=== PATIENT | female | born 1945 | race Caucasian/White ===

== ENCOUNTER 2017-04-26 09:00 | Inpatient (IN) | payer MEDICARE, OTHER ==
--- NOTE | 2017-06-15 15:59 | HP ---
HISTORY AND PHYSICAL: DATE OF ADMISSION/SURGERY: 06/21/17 SURGEON: Sera Saeed MD * (DICTATED BY CELINE PEREZ) PROCEDURE: Right total knee arthroplasty. CHIEF COMPLAINT: Right knee pain. HISTORY OF PRESENT ILLNESS: Ms. Larose is a 72-year-old female with complaints of right knee pain secondary to end-stage osteoarthritis. She has failed conservative management and elected to proceed with a right total knee arthroplasty which is scheduled for 06/21/[address] Saeed. PAST MEDICAL HISTORY: 1. Sleep apnea. 2. COPD. 3. Afib. PAST SURGICAL HISTORY: 1. Tonsillectomy. 2. Left total knee arthroplasty. CURRENT MEDICATIONS: 1. Vitamin B12. 2. ProAir HFA. 3. Eliquis 5 mg twice a day. 4. Metoprolol 25 mg once a day. 5. CPAP. 6. Spiriva inhaler. ALLERGIES: None. FAMILY HISTORY: Coronary artery disease, Alzheimer's and Parkinson's. SOCIAL HISTORY: A 72-year-old female lives with her . Does not smoke or use drugs. Uses occasional alcohol. REVIEW OF SYSTEMS: A complete 14-point review of systems was reviewed with the patient. It is positive for COPD and shortness of breath. PHYSICAL EXAMINATION GENERAL: She is well developed, well nourished, in no acute distress. VITAL SIGNS: She stands 5 feet 5 inches tall, weighs 215 pounds. Blood pressure 131/82 and her heart rate 74. HEENT: Normocephalic, atraumatic. NECK: Supple. No palpable lymph nodes. PULMONARY: The lungs are clear to auscultation bilaterally. CARDIAC: Regular rate and rhythm. Strong S1 and S2. ABDOMEN: Soft, nontender, and nondistended. MUSCULOSKELETAL: Right lower extremity, the skin is intact. There is no open wounds or abrasions. Just some tenderness over the medial and lateral joint line. There is a moderate joint effusion. Range of motion is 10 to 120 degrees with patellofemoral crepitus, 2+ dorsalis pedis pulses. She has intact sensation. Her lower extremity muscle group strengths are intact at 5/5. NEUROLOGIC: She is alert and oriented x3. Cranial nerves II through XII are intact. ASSESSMENT AND PLAN: Ms. Larose is a 72-year-old female with complaints of right knee pain secondary to end-stage osteoarthritis. She has failed conservative management and has elected to proceed with a right total knee arthroscopy, which is scheduled for 06/21/[address] Saeed discussed the risks and benefits of the surgery at today's visit and all of her questions were answered. She was instructed to stop her Eliquis 5 days prior to the surgery. Postoperatively, she will be placed on Lovenox in the hospital for DVT prophylaxis, and when she is released to go home, she will be placed back on her home dose Eliquis. She will follow up with Dr. Saeed 2 weeks after the surgery. CELINE PEREZ [id number]/[facility] #: [id number] MTDD
[2017-06-20] MEDS ORDERED: Buffered Lidocaine 0.9% SYRIN* 5 ML/SYR SYRINGE INTRADERM ONE (11:42)
[2017-06-21] MEDS ORDERED: Famotidine IV* 10 MG/ML 2 ML (20 mg) IV ONE (06:00)
[2017-06-21] MEDS ORDERED: Acetaminophen IV 1GM/100ML * 1,000 MG/100 ML VIAL IVPB ONE (06:00)
[2017-06-21] MEDS ORDERED: Gabapentin CAP(*) 300 MG PO ONE (06:00)
[2017-06-21] MEDS ORDERED: Ketorolac INJ* 30 MG/ML 1 ML VIAL IV ONE (06:00)
[2017-06-21] MEDS ORDERED: Metoclopramide TAB* 10 MG PO ONE (06:00)
[2017-06-21] MEDS ORDERED: Levalbuterol 0.63MG/3ML NEB* UNIT OF USE INH ONE ×2 (06:00→08:15)
[2017-06-21] MEDS ORDERED: Famotidine IV* 10 MG/ML 2 ML (20 mg) ONE (08:09)
[2017-06-21] MEDS ORDERED: Gabapentin CAP(*) 300 MG ONE (08:09)
[2017-06-21] MEDS ORDERED: Ketorolac INJ* 30 MG/ML 1 ML VIAL ONE (08:09)
[2017-06-21] MEDS ORDERED: Metoclopramide TAB* 10 MG ONE (08:09)
[2017-06-21] MEDS ORDERED: ceFAZolin 2 GM (*##) 2 GM/100 ML BAG USE CEFA2SOL IVPB ONE (08:10)
[2017-06-21] MEDS ORDERED: Acetaminophen IV 1GM/100ML * 100 ML ONE (08:15)
[2017-06-21] MEDS ORDERED: Metoprolol Tartrate TAB* 25 MG ONE (10:24)
[2017-06-21] MEDS ORDERED: Lidocaine 2% PF * 5 ML VIAL ONE (10:36)
[2017-06-21] MEDS ORDERED: Ondansetron INJ* 2 MG/ML VIAL ONE (10:36)
[2017-06-21] MEDS ORDERED: Dexamethasone IV* 4 MG/ML 1 ML (4 MG) ONE (10:36)
[2017-06-21] MEDS ORDERED: Propofol* 10 MG/ML 20 ML BTL IV PUSH ONE (10:36)
[2017-06-21] MEDS ORDERED: Midazolam* 1 MG/ML 10 ML VIAL (10 MG) ONE (10:37)
[2017-06-21] MEDS ORDERED: fentaNYL* 50 MCG/ML 5 ML VIAL (250 MCG VIAL) ONE (10:37)
[2017-06-21] MEDS ORDERED: ROPIVACAINE 5 MG/ML 30 ML BTL (0.5%) ONE (10:39)
[2017-06-21] MEDS ORDERED: Bupivacaine 0.5% SDV PF* 10-30ML VIAL ONE (13:12)
[2017-06-21] MEDS ORDERED: Phenylephrine INJ* 10 MG/ML 1 ML VIAL (10 MG) ONE (13:13)
[2017-06-21] MEDS ORDERED: EPHEDrine (Pressors)* 50 MG/ML VIAL ONE (13:13)
[2017-06-21] MEDS ORDERED: Atropine 1MG/ML INJ* 1 ML VIAL ONE (13:52)
[2017-06-21] MEDS ORDERED: Levalbuterol 0.63MG/3ML NEB* UNIT OF USE INH PRN (14:47)
[2017-06-21] MEDS ORDERED: fentaNYL* 50 MCG/ML 2 ML VIAL (100 MCG VIAL) IV PRN (14:47)
[2017-06-21] MEDS ORDERED: Ondansetron INJ* 2 MG/ML VIAL IV PRN ×2 (14:47→15:35)
[2017-06-21] MEDS ORDERED: Naloxone* 0.4 MG/ML 1 ML VIAL IV PRN (14:47)
[2017-06-21] MEDS ORDERED: HYDROmorphone INJ* 1 MG/ML CARPUJECT SYRINGE ONE (15:00)
[2017-06-21] MEDS ORDERED: oxyCODONE TAB* 5 MG TAB PO PRN (15:35)
[2017-06-21] MEDS ORDERED: Ondansetron TAB* 4 MG PO PRN (15:35)
[2017-06-21] MEDS ORDERED: oxyCODONE/Acetamin 5/325 MG* TAB PO PRN (15:35)
[2017-06-21] MEDS ORDERED: Cyclobenzaprine TAB* 10 MG PO PRN (15:35)
[2017-06-21] MEDS ORDERED: Polyethylene Glycol 3350* 17 GM PACKET PO PRN (15:35)
[2017-06-21] MEDS ORDERED: Bisacodyl SUPP* 10 MG SUPP PR PRN (15:35)
[2017-06-21] MEDS ORDERED: Acetaminophen TAB* 325 MG PO PRN (15:35)
[2017-06-21] MEDS ORDERED: Morphine INJ* 2 MG/ML 1 ML CARPUJECT IV PRN (15:35)
[2017-06-21] MEDS ORDERED: Magnesium Hydroxide LIQ* 30 ML UDC PO PRN (15:35)
[2017-06-21] MEDS ORDERED: diPHENhydraMINE IV* 50 MG/ML 1 ml VIAL (BENADRYL) IV PRN (15:35)
[2017-06-21] MEDS ORDERED: Albuterol HFA INHALER* 8 gm MDI INH PRN (15:41)
[2017-06-21] MEDS ORDERED: fentaNYL* 50 MCG/ML 2 ML VIAL (100 MCG VIAL) ONE (16:00)
--- NOTE | 2017-06-21 16:27 | RAD ---
HISTORY: Status post right knee arthroplasty COMPARISONS: February 21, 2017 VIEWS: 2, Frontal and lateral views of the right knee FINDINGS: BONE DENSITY: Normal. BONES: The patient is status post right knee arthroplasty. There is no hardware failure or osteolysis. JOINTS: The patient is status post right knee arthroplasty. ALIGNMENT: There is no dislocation. SOFT TISSUES: There is postsurgical change to the soft tissues. OTHER FINDINGS: None. IMPRESSION: STATUS POST RIGHT KNEE ARTHROPLASTY
[2017-06-21] MEDS ORDERED: oxyCODONE/Acetamin 5/325 MG* TAB ONE (18:34)
[2017-06-21] MEDS: oxyCODONE/Acetamin 5/325 MG* TAB PO PRN ×2 (18:36→23:31)
--- NOTE | 2017-06-21 19:24 | CONSULT ---
Consult Consult: HOSPITALIST CONSULT Date of Consultation: 06/21/17 Requesting Provider: Dr Saeed Reason for Consultation: medical co-management HPI: Ms Larose is a 72 yo F who has a h/o afib on eliquis, COPD/asthma, EFREN and inflammatory arthropathy who was admitted following an elective R total knee arthroplasty on 06/21/17. The patient states she is currently feeling quite good. She states her pain is about a 4-5 and manageable. She denies any chest pain. She does admit to SOB but states it is at her baseline. She tolerated a clear liquid dinner without any nausea. PMHx: Afib, COPD, asthma, EFREN, inflammatory arthropathy PSHx: L TKA, R knee arthroscopy, tonsillectomy, R TKA All: NKDA Meds: reviewed FamHx: Mom with Alzheimers, Dad had Parkinsons SocHx: NO tobacco use, occasional EtOH, former teacher, , lives with in an independent cottage at [facility] ROS: per HPI and otherwise negative. PE: Selected Entries 06/21/17 17:15 Pulse Rate 59 Respiratory 14 Rate Blood Pressure 121/56 (mmHg) O2 Sat by Pulse 100 Oximetry Oxygen Flow 2 Rate gen: Elderly female sitting up in bed, NAD HEENT: PERRL, EOMI, oropharynx clear and moist Card: nl S1S2 RRR, no murmurs, no edema Lungs: CTA B/L Abd: BS+ soft, NT, ND Neuro: CN II-XII grossly intact, sensation intact, UE strength normal, LE strength not tested Skin: R knee in post-op dressing with Cryo unit in place Psych: A+Ox3 A/P: Ms Larose is a 72 yo F who has a h/o afib on eliquis, COPD, EFREN and inflammatory arthropathy who is admitted to [facility] following an elective R TKA. 1. Afib: the patient is currently in NSR. She will be maintained on her metoprolol XL 25mg nightly. Her eliquis is currently on hold but should be resumed as soon as ok'ed by orthopedics. 2. COPD: no signs of exacerbation at this time. Will continue spiriva and prn albuterol. 3. EFREN: pt brought her own CPAP. Will have respiratory set this up. 4. Inflammatory arthropathy: Continue pain control with prn tylenol and oxycodone. 5. DVT-P: to start on lovenox 06/22/17-resume eliquis as soon as possible. 6. Will continue to follow.
[2017-06-21] MEDS ORDERED: Metoprolol Succinate XL TAB* 25 MG PO SCH (21:00)
[2017-06-21] MEDS: Magnesium Hydroxide LIQ* 30 ML UDC PO SCH (21:13)
[2017-06-21] MEDS: ceFAZolin 1 GM in Dextrose (*) 1 GM/50 ML BAG IVPB SCH (21:14)
[2017-06-21] MEDS: Metoprolol Succinate XL TAB* 25 MG PO SCH (21:14)
[2017-06-21] MEDS: Docusate CAP* 100 MG PO SCH (21:14)
[2017-06-22] MEDS: oxyCODONE/Acetamin 5/325 MG* TAB PO PRN ×5 (04:00→21:05)
[2017-06-22] MEDS: ceFAZolin 1 GM in Dextrose (*) 1 GM/50 ML BAG IVPB SCH ×2 (05:05→12:45)
[2017-06-22 06:32] LABS: Hematocrit 29 % (35-47); Hemoglobin 9.7 g/dl (12.0-16.0); Mean Platelet Volume 8 um3 (7.4-10.4); Platelet Count 193 10^3/ul (150-450)
[2017-06-22 06:37] LABS: INR 0.94 (0.77-1.02)
[2017-06-22 06:45] LABS: EGFR Non-African American 101.9 (>60)
[2017-06-22] MEDS: Docusate CAP* 100 MG PO SCH ×2 (08:41→21:07)
[2017-06-22] MEDS: Magnesium Hydroxide LIQ* 30 ML UDC PO SCH ×2 (08:42→21:04)
[2017-06-22] MEDS: Tiotropium CAP.INH* CAP.INH/18 MCG (USE ORDER SET !) INH SCH (08:43)
[2017-06-22] MEDS ORDERED: Spiriva Inhaler DEVICE* 1 EACH DEVICE INH ONE (09:00)
[2017-06-22] MEDS ORDERED: Spiriva Inhaler DEVICE* 1 EACH DEVICE INH SCH (09:00)
--- NOTE | 2017-06-22 09:16 | PN ---
Subjective Date of Service: 06/22/17 Interval History: Pt feels well, went with PT to bathroom and back. Has a burning sensation over the patella of operated knee Objective Active Medications: Acetaminophen (Tylenol Tab*) 650 mg PO Q4H PRN PRN Reason: PAIN OR TEMPERATURE Albuterol (Ventolin Hfa Inhaler*) 2 puff INH Q6H PRN PRN Reason: SHORTNESS OF BREATH Bisacodyl (Dulcolax Supp*) 10 mg [place] DAILY PRN PRN Reason: constipation Cyanocobalamin (Vitamin B12 Tab*) 1,000 mcg PO DAILY [facility] Cyclobenzaprine HCl (Flexeril Tab*) 10 mg PO TID PRN PRN Reason: SPASMS Diphenhydramine HCl (Benadryl Iv*) 12.5 mg IV Q6H PRN PRN Reason: PRURITIS Docusate Sodium (Colace Cap*) 100 mg PO BID [facility] Last Admin: 06/22/17 08:41 Dose: 100 mg Enoxaparin Sodium (Lovenox(*)) 40 mg SUBCUT Q24H [facility] Cefazolin Sodium/Dextrose (Kefzol 1 Gm In Dextrose Duplex (*)) 1 gm in 50 mls @ 200 mls/hr IVPB Q8H [facility] Stop: 06/22/17 13:14 Last Admin: 06/22/17 05:05 Dose: 200 mls/hr Lactated Ringer's (Lactated Ringers 1000 Ml Bag*) 1,000 mls @ 100 mls/hr IV PER RATE [facility] Last Admin: 06/22/17 04:19 Dose: 100 mls/hr Lactulose (Lactulose*) 30 ml PO Q6H PRN PRN Reason: constipation Levalbuterol HCl (Xopenex 0.63mg/3ml Neb*) 0.63 mg INH ONCE PRN PRN Reason: SOB/WHEEZING Stop: 06/22/17 14:46 Magnesium Hydroxide (Milk Of Magnesia Liq*) 30 ml PO BID [facility] Last Admin: 06/22/17 08:42 Dose: 30 ml Magnesium Hydroxide (Milk Of Magnesia Liq*) 30 ml PO Q6H PRN PRN Reason: constipation Metoprolol Succinate (Toprol Xl Tab*) 25 mg PO BEDTIME [facility] Last Admin: 06/21/17 21:14 Dose: 25 mg Morphine Sulfate (Morphine Inj (Syringe)*) 2 mg IV Q2H PRN PRN Reason: PAIN Ondansetron HCl (Zofran Inj*) 4 mg IV Q6H PRN PRN Reason: nausea Ondansetron HCl (Zofran Tab*) 4 mg PO Q6H PRN PRN Reason: NAUSEA Oxycodone HCl (Roxycodone Tab*) 10 mg PO Q4H PRN PRN Reason: SEVERE PAIN Oxycodone/Acetaminophen (Percocet 5/325 Tab*) 2 tab PO Q4H PRN PRN Reason: PAIN Last Admin: 06/22/17 08:41 Dose: 2 tab Oxycodone/Acetaminophen (Percocet 5/325 Tab*) 1 tab PO Q4H PRN PRN Reason: PAIN Polyethylene Glycol/Electrolytes (Miralax*) 17 gm PO DAILY PRN PRN Reason: Constipation Tiotropium [place] (Spiriva Cap.Inh*) 1 cap INH DAILY [facility] Last Admin: 06/22/17 08:43 Dose: Not Given Vital Signs - 8 hr 06/22/17 06/22/17 06/22/17 01:55 03:39 04:00 Temperature 98.1 F Pulse Rate 65 Respiratory 15 13 16 Rate Blood Pressure 125/56 (mmHg) O2 Sat by Pulse 100 Oximetry 06/22/17 06/22/17 07:18 08:41 Temperature 97.5 F Pulse Rate 64 Respiratory 17 18 Rate Blood Pressure 113/56 (mmHg) O2 Sat by Pulse 100 Oximetry Oxygen Devices in Use Now: None, CPAP Appearance: 72 yo F in nAD, aAOx3 Eyes: No Scleral Icterus, PERRLA Ears/Nose/Mouth/Throat: NL Teeth, Lips, Gums, Mucous Membranes Moist Neck: NL Appearance and Movements; NL JVP, Trachea Midline Respiratory: Symmetrical Chest Expansion and Respiratory Effort, Clear to Auscultation Cardiovascular: NL Sounds; No Murmurs; No JVD, RRR Abdominal: NL Sounds; No Tenderness; No Distention Lymphatic: No Cervical Adenopathy Extremities: No Edema, No Clubbing, Cyanosis Skin: No Nodules or Sclerosis, - - R knee in cryo unit, surgical incision not inspected Neurological: Alert and Oriented x 3, NL Muscle Strength and Tone Result Diagrams: 06/22/17 06:18 06/22/17 06:18 Assess/Plan/Problems-Billing Assessment: 72 yo f with h/o PA. fib, COPD, EFREN s/p elective R knee arthoplasty - Patient Problems (1) History of arthroplasty of right knee Comment: As per Dr. Saeed (2) Paroxysmal A-fib Comment: in NSR today, cont Toprol XL Eliquis to be restarted as soon as Dr. Saeed is agreeable to it (3) COPD (chronic obstructive pulmonary disease) Comment: not in exacerbation, cont Spiriva, albuterol (4) Vitamin B12 deficiency Comment: cont home supplementation (5) EFREN (obstructive sleep apnea) Comment: CPAP nightly (6) Acute blood loss as cause of postoperative anemia Comment: Hb down post op as expected (7) DVT prophylaxis Comment: Lovenox, to be placed on Eliquis when ortho ready to do it Status and Disposition: Medicine consult , will follow
--- NOTE | 2017-06-22 10:48 | PN ---
Progress Note - Progress Note Date of Service: 06/22/17 SOAP: Subjective: []Patient seen at bedside. She feels well and denies right knee pain. No chest pain, shortness of breath, nausea, dizziness. Objective: [] Vital Signs Temp 97.5 F 06/22/17 07:18 Pulse 64 06/22/17 07:18 Resp 18 06/22/17 10:26 BP 113/56 06/22/17 07:18 Pulse Ox 100 06/22/17 07:18 Intake & Output 06/21/17 06/22/17 06/22/17 18:59 06:59 18:59 Intake Total 2650 2380 450 Output Total 350 2760 300 Balance 2300 -380 150 Weight 215 lb Intake: IV Fluids 2050 1005 ABX - CEFAZOLIN 55 LR 2000 950 NS 50ML, Cefazolin 2G 50 IVPB 55 ABX - CEFAZOLIN 55 Oral 600 1320 450 Output: Urine 300 Egan 350 2760 Laboratory Last Values Hgb 9.7 g/dl (12.0-16.0) L 06/22/17 06:18 Hct 29 % (35-47) L 06/22/17 06:18 Plt Count 193 10^3/ul (150-450) 06/22/17 06:18 MPV 8 um3 (7.4-10.4) 06/22/17 06:18 INR (Anticoag Therapy) 0.94 (0.77-1.02) 06/22/17 06:18 Sodium 136 mmol/L (133-145) 06/22/17 06:18 Potassium 4.1 mmol/L (3.5-5.0) 06/22/17 06:18 Chloride 104 mmol/L (101-111) 06/22/17 06:18 Carbon Dioxide 25 mmol/L (22-32) 06/22/17 06:18 Anion Gap 7 mmol/L (2-11) 06/22/17 06:18 BUN 7 mg/dL (6-24) 06/22/17 06:18 Creatinine 0.58 mg/dL (0.51-0.95) 06/22/17 06:18 Est GFR ( Amer) 131.1 (>60) 06/22/17 06:18 Est GFR (Non-Af Amer) 101.9 (>60) 06/22/17 06:18 BUN/Creatinine Ratio 12.1 (8-20) 06/22/17 06:18 Glucose 115 mg/dL (70-100) H 06/22/17 06:18 Calcium 8.7 mg/dL (8.6-10.3) 06/22/17 06:18 General: Well appearing, NAD RLE: Dressing CDI, cryo in use. DF/PF intact. 2+ DP/PT pulse. Sensation intact and capillary refill less than two seconds distally. BL LE: Calves supple and nontender without erythema, edema or palpable cords. Assessment: [] POD 1 s/p right total knee arthroplasty 06/21 Dr Saeed Plan: []WBAT PT/OT Lovenox only in house. Resumdominic william at OR Lives at [facility], will DC to [facility] when medially appropriate
[2017-06-22] MEDS: Enoxaparin(*) 40 MG/0.4 ML SYR SUBCUT SCH (12:46)
[2017-06-22] MEDS: Metoprolol Succinate XL TAB* 25 MG PO SCH (21:07)
[2017-06-23] MEDS: oxyCODONE/Acetamin 5/325 MG* TAB PO PRN ×3 (01:22→09:49)
[2017-06-23 05:25] LABS: ABS Basophils 0 10^3/ul (0-0.2); ABS Eosinophils 0.1 10^3/ul (0-0.6); ABS Lymphocytes 1.6 10^3/ul (1.0-4.8); ABS Monocytes 0.7 10^3/ul (0-0.8); ABS Neutrophils 4.5 10^3/ul (1.5-7.7); ABS Nucleated RBC 0 10^3/ul; Hematocrit 25 % (35-47); Hemoglobin 8.6 g/dl (12.0-16.0); Lymphocyte % 22.7 % (25-47); Mean Corpuscular HGB Conc 34 g/dl (31-36); Mean Corpuscular Hemoglobin 30 pg (27-31); Mean Corpuscular Volume 88 fL (80-97); Mean Platelet Volume 8.2 um3 (7.4-10.4); Nucleated Red Blood Cells % 0.1; Platelet Count 199 10^3/ul (150-450); Red Blood Count 2.84 10^6/ul (4.0-5.4); Red Cell Distribution Width 14 % (10.5-15); White Blood Count 6.9 10^3/ul (3.5-10.8)
[2017-06-23 05:34] LABS: INR 0.93 (0.77-1.02)
--- NOTE | 2017-06-23 05:42 | OP ---
DATE OF OPERATION: 06/21/17 - ROOM #350 DATE OF : 43 SURGEON: Sera Saeed MD CLOCK ASSEMBLER: CELINE Garcia. Ms. Scott did help throughout the procedure with preparation of the leg, wound retraction, manipulation of the knee, and wound closure. ANESTHESIOLOGIST: Andrew Arriaza MD ANESTHESIA: General with adductor nerve block. PRE-OP DIAGNOSIS: Severe end-stage degenerative osteoarthritis of the right knee joint. POST-OP DIAGNOSIS: Severe end-stage degenerative osteoarthritis of the right knee joint. OPERATIVE PROCEDURE: Right total knee arthroplasty. INDICATIONS: Ms. Larose is a 72-year-old female with years of increasingly severe right knee pain. She failed conservative treatment with antiinflammatory pain medication, intraarticular injection, and physical therapy. Radiographs showed [id number] arthritis. She would like to undergo right total knee arthroplasty for continued pain and decreased quality of life. Informed consent was obtained from the patient. She understood the risks of the procedure included but were not limited to bleeding, infection, damage to nearby structures, continued pain, need for further surgery, intra-operative fracture, nerve palsy, hardware failure or loosening, stiffness, loss of motion , stroke, heart attack, blood clot, and . She wished to proceed. TOURNIQUET TIME: 53 minutes. COMPLICATIONS: None. SPECIMENS: Bone and cartilage from the right knee joint sent to Pathology. ESTIMATED BLOOD LOSS: 100 cc. HARDWARE USED: This is cemented total knee arthroplasty hardware. Two packages of Simplex bone cement were used. For the femur, a size 5-0 posterior stabilized Legion femoral component. For the tibia, a size 3 right tibial base plate Eufemia 2. For the insert, a 9-mm posterior stabilized articular insert, size 3-4. For the patella, 32-mm 3-peg all poly patella, 7.5 thickness. INTRAOPERATIVE FINDINGS: Intraoperatively, the patient was noted to have severe end-stage arthritis with complete loss of cartilage in the medial and patellofemoral compartments. She has significant flexion contracture of 15 degrees at the beginning of the case. This was corrected to full extension throughout the case. DESCRIPTION OF PROCEDURE: Ms. Larose was identified in the preanesthesia unit. Her right lower extremity was marked as the correct operative side. Informed consent was signed and placed in the chart. The patient was taken to the operating room. The anesthesia was administered without complication. A Egan catheter was placed. Thigh-high tourniquet was placed on the right thigh. Right lower extremity was prepped and draped in the usual sterile fashion. Preop time-out was made to correctly identify the patient, side, and site. Appropriate, perioperative antibiotics were given within 1 hour of incision. A 12-cm midline incision was made with #10 blade and carried down to the extensor mechanism. A new 10-blade was used to make a standard medial parapatellar arthrotomy. The patella was subluxed laterally. Electrocautery was used to subperiosteally elevate soft tissue off the superomedial tibia to the mid sagittal plane. The knee was flexed up. The anterior horn of the lateral meniscus and the ACL were sharply released. A drill was used to enter the distal femur. Intramedullary distal femoral cutting guide was pinned on the distal femur. Oscillating saw was used to make the appropriate distal femoral cut. Next, the external rotation guide was pinned on the distal femur and the distal femur was sized to a size 5. A size 5 muti-cutting jig was pinned on the distal femur. Oscillating saw was used to make the appropriate 4 chamfer cuts. The PCL was completely released. The tibia was subluxed anteriorly. Osteophytes were removed from around the medial tibial plateau. Some soft tissue release medially was performed due to the chronic contracture. Extramedullary tibial cutting guide was pinned on the proximal tibia. The oscillating saw was used to make the proximal tibial cut perpendicular to the mechanical aspect of the tibia. The bone was carefully removed. The knee was brought out into full extension. A spacer block had a good fit with medial and lateral ligamentous balancing. The knee had full extension. Flexion and extension gaps were well balanced. The knee was flexed up. Lamina local superintendent was placed both medially and laterally. Any remaining meniscus was carefully removed using electrocautery. A curved osteotome was used to remove posterior osteophytes. Tibial tray and drop celeste were placed and once again confirmed satisfactory proximal tibial cut. This was confirmed. A right size 5 narrow femoral trial was impacted on to the distal femur and had excellent fit. The box for the posterior stabilized implant was prepared using a reamer and box cut osteotome. A size 3 tibial tray trial with 9-mm insert trial was placed and the knee was taken through a range of motion. The knee had full extension to 130 degrees of flexion with satisfactory patellofemoral tracking. The patella was everted. 7 mm of patellar bone and cartilage was carefully removed using an oscillating saw. The patella was sized to a size 32. The 3 peg holes were drilled through the size 32 guide. A 7.5 thickness 32 patella was chosen and the trial was placed. The knee was taken through a range of motion. The patellofemoral tracking was satisfactory. All trials were carefully removed. The tibia subluxed anteriorly and sized to a size 3. Proximal tibia was prepared using a size 3 keel punch. All bony cut surfaces were copiously irrigated with sterile saline and dried. Final implants were cemented into place starting with the tibia followed by the femur and lastly the patella. A 9-mm insert trial was placed and the knee was brought out into full extension. The tourniquet was turned down at 53 minutes. The knee was copiously irrigated with sterile saline. Electrocautery was used to obtain meticulous hemostasis. Once the cement had fully cured, the insert trial was removed. Any extra cement was removed from around the capsule and hard-hilario. A 9-mm posterior stabilized articular insert, size 3-4 was chosen. This was locked into the position on the tibial tray. Stability of the insert was checked and rechecked and noted to be stable. The knee was copiously irrigated with sterile saline once again. The extensor mechanism was closed using interrupted #1 Vicryls. The rest of the incision was closed in a layered fashion using 0 and 2-0 Vicryls. The skin was closed using running 3-0 nylon suture. Sterile Xeroform, 4x4s, and Webril were used to cover the incision. Miguel Angel wrap and cold pack were placed over this. The patient's anesthesia was reversed without difficulty. She was taken to the PACU in stable condition. Intended weightbearing will be weightbearing as tolerated. Intended DVT prophylaxis will be Coumadin with a Lovenox bridge. [id number]/[facility] #: [id number] [facility] HE[facility] SYSTEMJurgen
[2017-06-23 05:43] LABS: EGFR Non-African American 101.9 (>60)
[2017-06-23] MEDS ORDERED: Cyanocobalamin TAB* 500 MCG PO SCH (09:00)
[2017-06-23] MEDS: Magnesium Hydroxide LIQ* 30 ML UDC PO SCH (09:07)
[2017-06-23] MEDS: Docusate CAP* 100 MG PO SCH (09:07)
[2017-06-23] MEDS: Tiotropium CAP.INH* CAP.INH/18 MCG (USE ORDER SET !) INH SCH (09:12)
--- NOTE | 2017-06-23 10:08 | PN ---
Progress Note - Progress Note Date of Service: 06/23/17 SOAP: Subjective: []Patient seen at bedside. Her right knee is not currently painful. Denies dizziness, nausea, confusion, CP, SOB or leg numbness. No known history of hyponatremia. Objective: [] Vital Signs Temp 98.9 F 06/23/17 07:35 Pulse 65 06/23/17 07:35 Resp 16 06/23/17 09:49 BP 124/59 06/23/17 07:35 Pulse Ox 100 06/23/17 07:35 Intake & Output 06/22/17 06/23/17 06/23/17 18:59 06:59 18:59 Intake Total 1562 1620 225 Output Total 1000 675 150 Balance 562 945 75 Intake: IV Fluids 887 ABX - CEFAZOLIN 55 LR 832 Oral 675 1620 225 Output: Urine 1000 675 Emesis 150 Other: Date of Last Bowel 1 Movement # Bowel Movements 0 Estimated Stool Amount Medium Laboratory Last Values WBC 6.9 10^3/ul (3.5-10.8) 06/23/17 05:12 RBC 2.84 10^6/ul (4.0-5.4) L 06/23/17 05:12 Hgb 8.6 g/dl (12.0-16.0) L 06/23/17 05:12 Hct 25 % (35-47) L 06/23/17 05:12 MCV 88 fL (80-97) 06/23/17 05:12 MCH 30 pg (27-31) 06/23/17 05:12 MCHC 34 g/dl (31-36) 06/23/17 05:12 RDW 14 % (10.5-15) 06/23/17 05:12 Plt Count 199 10^3/ul (150-450) 06/23/17 05:12 MPV 8.2 um3 (7.4-10.4) 06/23/17 05:12 Neut % (Auto) 66.1 % (38-83) 06/23/17 05:12 Lymph % (Auto) 22.7 % (25-47) L 06/23/17 05:12 Brown % (Auto) 9.6 % (0-7) H 06/23/17 05:12 Eos % (Auto) 1.0 % (0-6) 06/23/17 05:12 Baso % (Auto) 0.6 % (0-2) 06/23/17 05:12 Absolute Neuts (auto) 4.5 10^3/ul (1.5-7.7) 06/23/17 05:12 Absolute Lymphs (auto) 1.6 10^3/ul (1.0-4.8) 06/23/17 05:12 Absolute Monos (auto) 0.7 10^3/ul (0-0.8) 06/23/17 05:12 Absolute Eos (auto) 0.1 10^3/ul (0-0.6) 06/23/17 05:12 Absolute Basos (auto) 0 10^3/ul (0-0.2) 06/23/17 05:12 Absolute Nucleated RBC 0 10^3/ul 06/23/17 05:12 Nucleated RBC % 0.1 06/23/17 05:12 INR (Anticoag Therapy) 0.93 (0.77-1.02) 06/23/17 05:12 Sodium 127 mmol/L (133-145) L D 06/23/17 05:12 Potassium 4.3 mmol/L (3.5-5.0) 06/23/17 05:12 Chloride 97 mmol/L (101-111) L 06/23/17 05:12 Carbon Dioxide 25 mmol/L (22-32) 06/23/17 05:12 Anion Gap 5 mmol/L (2-11) 06/23/17 05:12 BUN 11 mg/dL (6-24) 06/23/17 05:12 Creatinine 0.58 mg/dL (0.51-0.95) 06/23/17 05:12 Est GFR ( Amer) 131.1 (>60) 06/23/17 05:12 Est GFR (Non-Af Amer) 101.9 (>60) 06/23/17 05:12 BUN/Creatinine Ratio 19.0 (8-20) 06/23/17 05:12 Glucose 115 mg/dL (70-100) H 06/23/17 05:12 Calcium 8.2 mg/dL (8.6-10.3) L 06/23/17 05:12 Magnesium 2.2 mg/dL (1.9-2.7) 06/23/17 05:12 General: Well appearing, NAD. Sitting comfortably in chair. RLE: Dressing changed. Incision CDI without erythema or discharge. DF/PF intact. 2+ DP/PT pulse. Sensation intact distally. BL LE: Calves supple and nontender without erythema, edema or palpable cords. Assessment: []POD 2 SP right total knee replacement Hyponatremia likely due to IV fluids Plan: []WBAT PT/OT Hyponatremia discussed with medicine. Saline lock and fluid restrict for low Na , will have [facility] hoff. DC to [facility] z[facility] today
--- NOTE | 2017-06-23 11:17 | DS ---
DATE OF ADMISSION: 06/21/2017. DATE OF DISCHARGE: 06/23/2017. ATTENDING SURGEON: Dr. Sera Saeed* (dictated by CELINE Quiros). DATE OF OPERATION: 06/21/2017. DIRECTOR STATISTICAL PROGRAMMING: CELINE Joreg. PREOPERATIVE DIAGNOSIS: Severe end-stage degenerative osteoarthritis of the right knee joint. OPERATIVE PROCEDURE: Right total knee arthroplasty. HISTORY: Ms. Larose is a 72-year-old female with years of increasingly severe right knee pain due to severe end-stage degenerative osteoarthritis of the right knee. She failed conservative management and elected to undergo a right total knee arthroplasty. HOSPITAL COURSE: Sharon Larose was admitted to [facility] on 2017. She underwent a right total knee arthroplasty without complication. She recovered briefly in the PACU and then transferred in stable condition to the Short Stay Surgical Unit. She was followed by the Hospitalist service while in house. Post op day one, hemoglobin 9.7, hematocrit 29, sodium 136. The patient was well-appearing in no acute distress. Dressing was clean, dry, and intact. Dorsiflexion and plantarflexion is intact. 2+ dorsalis pedis and posterior tibial pulse. Sensation intake with capillary refill less than two seconds distally. Calves were supple, nontender without erythema, edema, or palpable cords. The patient was taking Lovenox while in house for DVT prophylaxis. Postop day two, hemoglobin 8.6, hematocrit 25, sodium 127. She was well-appearing, in no acute distress. She was sitting comfortably in her chair. Dressing was changed. Incision was clean, dry, and intact without erythema or discharge. Dorsiflexion and plantarflexion intact. 2+ dorsalis pedis pulse and posterior tibial pulse. Sensation intact distally. Calves supple, nontender without erythema, edema, or palpable cords. Hyponatremia was discussed with medicine. The patient's IV fluid was saline locked this normal and she was asked to please fluid restrict if thought that her sodium was low simply due to fluid resuscitation. The patient was deemed to be medically and orthopedically stable for discharge back to [facility] today. Her vital signs included temperature 98.9, pulse 65, respiratory rate 16, blood pressure 124/59, and pulse ox of 100. DISCHARGE MEDICATIONS: 1. B12 1,000 mcg p.o. daily. 2. Spiriva one inhalation q.a.m. 3. Metoprolol Succinate ER 25 mg p.o. at bedtime. 4. Eliquis 5 mg p.o. b.i.d. 5. Albuterol 108 mcg inhaled q.6 hours prn. 6. Acetaminophen 650 mg p.o. q.4 hours prn, max daily dose of 4,000 from all sources. 7. Docusate 100 mg p.o. b.i.d. prn constipation. 8. Percocet 5/325 one to two tabs every 4 to 6 hours as needed, max daily dose of 10. DISCHARGE INSTRUCTIONS: Weightbearing as tolerated. May shower on postop day three which is 06/24/2017. Do not submerge the wound. Regular diet. Call office if no bowel motion within 48 hours. Go to the emergency room with shortness of breath or chest pain. Please call the office for any increased drainage, redness, increased pain or fever. Continue physical therapy and occupational therapy. Nurses at [facility] will do wound check as well as do a blood draw tomorrow to follow- up on hyponatremia. They will follow hyponatremia as needed. DVT/PE prophylaxis, the patient will resume her home dose of Eliquis 5 mg by mouth every 12 hours. Pain control with Percocet 5/325 one to two tabs by mouth every 4 to 6 hours as needed for pain, max daily dose of ten tabs. Follow-up with Dr. Saeed within 10 to 14 days. CELINE TEAGUE [id number]/[facility] #: [id number] [facility] CENTERJurgen
[2017-06-23 11:47] VITALS: BP 137/57
[2017-06-23] MEDS: Enoxaparin(*) 40 MG/0.4 ML SYR SUBCUT SCH (12:12)
--- NOTE | 2017-06-23 13:47 | PN ---
Subjective Date of Service: 06/23/17 Interval History: Pt vomitted once this AM. Now she feels better and c/o no nausea.Feels good and wants to go home. Pt denies melena or BRBPR, had a BM last night that was "yellow and pasty" Objective Active Medications: Acetaminophen (Tylenol Tab*) 650 mg PO Q4H PRN PRN Reason: PAIN OR TEMPERATURE Albuterol (Ventolin Hfa Inhaler*) 2 puff INH Q6H PRN PRN Reason: SHORTNESS OF BREATH Bisacodyl (Dulcolax Supp*) 10 mg MI DAILY PRN PRN Reason: constipation Cyanocobalamin (Vitamin B12 Tab*) 1,000 mcg PO DAILY [facility] Last Admin: 06/23/17 09:12 Dose: Not Given Cyclobenzaprine HCl (Flexeril Tab*) 10 mg PO TID PRN PRN Reason: SPASMS Diphenhydramine HCl (Benadryl Iv*) 12.5 mg IV Q6H PRN PRN Reason: PRURITIS Docusate Sodium (Colace Cap*) 100 mg PO BID [facility] Last Admin: 06/23/17 09:07 Dose: Not Given Enoxaparin Sodium (Lovenox(*)) 40 mg SUBCUT Q24H [facility] Last Admin: 06/23/17 12:12 Dose: 40 mg Lactulose (Lactulose*) 30 ml PO Q6H PRN PRN Reason: constipation Magnesium Hydroxide (Milk Of Magnesia Liq*) 30 ml PO BID [facility] Last Admin: 06/23/17 09:07 Dose: Not Given Magnesium Hydroxide (Milk Of Magnesia Liq*) 30 ml PO Q6H PRN PRN Reason: constipation Metoprolol Succinate (Toprol Xl Tab*) 25 mg PO BEDTIME [facility] Last Admin: 06/22/17 21:07 Dose: 25 mg Morphine Sulfate (Morphine Inj (Syringe)*) 2 mg IV Q2H PRN PRN Reason: PAIN Last Admin: 06/23/17 05:07 Dose: 2 mg Ondansetron HCl (Zofran Inj*) 4 mg IV Q6H PRN PRN Reason: nausea Last Admin: 06/23/17 09:15 Dose: 4 mg Ondansetron HCl (Zofran Tab*) 4 mg PO Q6H PRN PRN Reason: NAUSEA Oxycodone HCl (Roxycodone Tab*) 10 mg PO Q4H PRN PRN Reason: SEVERE PAIN Last Admin: 06/23/17 13:05 Dose: 10 mg Oxycodone/Acetaminophen (Percocet 5/325 Tab*) 2 tab PO Q4H PRN PRN Reason: PAIN Last Admin: 06/23/17 09:49 Dose: 2 tab Oxycodone/Acetaminophen (Percocet 5/325 Tab*) 1 tab PO Q4H PRN PRN Reason: PAIN Polyethylene Glycol/Electrolytes (Miralax*) 17 gm PO DAILY PRN PRN Reason: Constipation Tiotropium [place] (Spiriva Cap.Inh*) 1 cap INH DAILY [facility] Last Admin: 06/23/17 09:12 Dose: Not Given Vital Signs - 8 hr 06/23/17 06/23/17 06/23/17 06:24 06:43 07:35 Temperature 98.9 F Pulse Rate 65 Respiratory 16 16 17 Rate Blood Pressure 124/59 (mmHg) O2 Sat by Pulse 99 100 Oximetry 06/23/17 06/23/17 06/23/17 09:20 09:49 11:42 Temperature 98.0 F Pulse Rate 70 Respiratory 16 16 16 Rate Blood Pressure 137/57 (mmHg) O2 Sat by Pulse 98 Oximetry 06/23/17 06/23/17 12:11 13:05 Temperature Pulse Rate Respiratory 16 16 Rate Blood Pressure (mmHg) O2 Sat by Pulse Oximetry Oxygen Devices in Use Now: None Appearance: 72 yo F in nAD, aAOx3 Eyes: No Scleral Icterus, PERRLA Ears/Nose/Mouth/Throat: NL Teeth, Lips, Gums, Mucous Membranes Moist Neck: NL Appearance and Movements; NL JVP, Trachea Midline Respiratory: Symmetrical Chest Expansion and Respiratory Effort, Clear to Auscultation Cardiovascular: NL Sounds; No Murmurs; No JVD, No Edema - trace pedal edema b/l Abdominal: NL Sounds; No Tenderness; No Distention Lymphatic: No Cervical Adenopathy Extremities: No Clubbing, Cyanosis Skin: - - R post op knee not unwrapped from surgical dressings, in cryo unit Neurological: Alert and Oriented x 3, NL Muscle Strength and Tone Result Diagrams: 06/23/17 05:12 06/23/17 05:12 Assess/Plan/Problems-Billing Assessment: 72 yo f with h/o PA. fib, COPD, EFREN s/p elective R knee arthoplasty - Patient Problems (1) History of arthroplasty of right knee Comment: As per Dr. Saeed, pt is being discharged to [facility] (2) Paroxysmal A-fib Comment: in NSR today, cont Toprol XL Eliquis (3) COPD (chronic obstructive pulmonary disease) Comment: not in exacerbation, cont Spiriva, albuterol (4) Vitamin B12 deficiency Comment: cont home supplementation (5) EFREN (obstructive sleep apnea) Comment: CPAP nightly (6) Acute blood loss as cause of postoperative anemia Comment: Hb down today again, but pt had been on IVF up till discharge, has no syptoms of bleeding. Suspect hemodilution (7) Hyponatremia Comment: post op, on IVF, suspect iatrogenic. Recommend f/u labs within one week (8) DVT prophylaxis Comment: Eliquis Status and Disposition: Medicine consult
--- NOTE | 2017-06-24 01:49 | DS ---
DISCHARGE SUMMARY: ADDENDUM: On the physical exam, please note that there were no signs of bleeding. Operative incision is clean, dry, and intact without any sign of hematoma. There is mild bruising about the incision without any obvious knee effusion. CELINE TEAGUE [id number]/[facility] #: [id number] [facility] HOSPITALJurgen
== END 2017-06-23 15:05 | DRG 470 ==
LOC: AA 06-21 07:59 → SSU 06-21 17:50
PROVIDERS: ADMIT Orthopaedic Surgery Adult Reconstructive Orthopaedic Surgery; ATTEND Orthopaedic Surgery Adult Reconstructive Orthopaedic Surgery
PROC: 0SRC0J9 Replacement of Right Knee Joint with Synthetic Substitute, Cemented, Open Approach (ICD-10-PCS; principal; 2017-06-21 11:00)
DX: M17.11 Unilateral primary osteoarthritis, right knee (principal); I48.0 Paroxysmal atrial fibrillation; J44.9 Chronic obstructive pulmonary disease, unspecified; Z96.652 Presence of left artificial knee joint; G47.33 Obstructive sleep apnea (adult) (pediatric); E53.8 Deficiency of other specified B group vitamins; K21.9 Gastro-esophageal reflux disease without esophagitis; F41.9 Anxiety disorder, unspecified; M25.761 Osteophyte, right knee; M24.561 Contracture, right knee; R11.10 Vomiting, unspecified; D62 Acute posthemorrhagic anemia; E87.1 Hypo-osmolality and hyponatremia; Z79.01 Long term (current) use of anticoagulants; Z90.89 Acquired absence of other organs; Z82.49 Family history of ischemic heart disease and other diseases of the circulatory system; Z81.8 Family history of other mental and behavioral disorders; Z72.89 Other problems related to lifestyle
CPT/HCPCS: 36415; 80048; 83735; 85014; 85018; 85025; 85049; 85610; 94760; A9270-GY; C1776; G8978-GP-CI; G8979-GP-CH; G8987-GO-CK; G8988-GO-CI; J0461; J0690; J1100; J1170; J1650; J1885; J2250; J2270; J2405; J2704; J2795; J3010; J7614

== ENCOUNTER 2022-10-13 09:43 | Observation (INO) ==
[2022-10-13] MEDS ORDERED: Lactated Ringers 1000 ml BAG 1,000 ML IV ONE (10:24)
[2022-10-13 10:38] LABS: ABS Basophils 0.1 10^3/uL (0.0-0.1); ABS Eosinophils 0.1 10^3/uL (0.0-0.5); ABS Lymphocytes 1.5 10^3/uL (1.0-4.8); ABS Monocytes 0.6 10^3/uL (0.0-0.9); ABS Nucleated RBC 0.01 10^3/ul; Eosinophil % 1.1 %; Hematocrit 42.2 % (35-45); Hemoglobin 14.3 g/dL (11.5-14.3); Lymphocyte % 24.2 %; Mean Corpuscular Volume 88.2 fL (80-97); Mean Platelet Volume 9.2 fL (7.5-11.2); Nucleated Red Blood Cells % 0.1 /100 WBC (0.0-0.4); Platelet Count 239 10^3/uL (150-450); Red Blood Count 4.78 10^6/uL (3.63-4.92); Red Cell Distribution Width 14.5 % (12-17); White Blood Count 6.3 10^3/uL (3.8-11.8)
[2022-10-13 10:43] LABS: INR 1.17 (0.88-1.18)
[2022-10-13 10:56] LABS: ALT 15 U/L (7-52); Albumin 4.2 g/dL (3.2-5.2); Albumin/Globulin Ratio 1.6 (1-3); Alkaline Phosphatase 50 U/L (35-149); Blood Urea Nitrogen 16 mg/dL (6-24); CO2 Carbon Dioxide 24 mmol/L (22-32); Calcium 9.4 mg/dL (8.6-10.3); Chloride 106 mmol/L (101-111); Globulin 2.7 g/dL (2-4); Glucose 99 mg/dL (70-100); Sodium 138 mmol/L (135-145); Total Protein 6.9 g/dL (6.4-8.9); eGFR CKD-EPI 65.4 (>60)
[2022-10-13 11:01] LABS: High Sens Troponin Baseline 8 pg/mL (<15)
[2022-10-13 11:21] LABS: Anion Gap 8 mmol/L (2-16)
[2022-10-13 12:29] LABS: Magnesium 2.1 mg/dL (1.9-2.7); Potassium Redraw 4.1 mmol/L (3.5-5.0)
[2022-10-13 17:52] LABS: Potassium, Whole Blood 3.7 mmol/L (3.4-4.5)
[2022-10-13] MEDS: SPIRIVA Respimat (tiotropium) 2.5 mcg/inh Inhaler INH SCH (18:58)
[2022-10-13] MEDS ORDERED: Latanoprost 0.005% 2.5 ml BTL BOTH EYES SCH (21:00)
[2022-10-14] MEDS: SPIRIVA Respimat (tiotropium) 2.5 mcg/inh Inhaler INH SCH (08:23)
[2022-10-14 17:03] VITALS: BP 157/73
== END 2022-10-14 16:07 | disposition home or self-care (01) ==
LOC: ED 09:43 → EDHOLD 09:43 → SUATTDRO 14:14 → EDHOLD 22:10 → MEDTELE 23:34
PROVIDERS: ADMIT Internal Medicine; ATTEND Hospitalist

== ENCOUNTER 2024-04-18 15:30 | Inpatient (IN) ==
[2024-04-18 16:23] LABS: ABS Basophils 0.1 10^3/uL (0.0-0.1); ABS Eosinophils 0.1 10^3/uL (0.0-0.5); ABS Lymphocytes 1.3 10^3/uL (1.0-4.8); ABS Neutrophils 10.5 10^3/uL (1.5-7.6); Eosinophil % 0.5 %; Hematocrit 38.6 % (35-45); Hemoglobin 13.6 g/dL (11.5-14.3); Lymphocyte % 9.8 %; Mean Corpuscular Hemoglobin 30.9 pg (27-33); Mean Corpuscular Hgb Conc 35.2 g/dL (31-36); Mean Corpuscular Volume 87.8 fL (80-97); Mean Platelet Volume 7.6 fL (7.5-11.2); Platelet Count 379 10^3/uL (150-450); Red Cell Distribution Width 14.9 % (12-17); White Blood Count 12.9 10^3/uL (3.8-11.8)
[2024-04-18 16:28] LABS: INR 1.35 (0.85-1.14)
[2024-04-18 17:06] LABS: Albumin 3.9 g/dL (3.5-5.7); Albumin/Globulin Ratio 1.9 (1-3); C Reactive Protein 41.9 mg/L (<8.01); Creatinine, Serum 0.85 mg/dL (0.51-0.95); Globulin 2.1 g/dL (2-4); Potassium 4.4 mmol/L (3.5-5.0); Total Bilirubin 0.5 mg/dL (0.2-1.0); eGFR CKD-EPI 69.6 (>60)
[2024-04-18 17:35] LABS: Urine Appearance Clear; Urine Bilirubin Negative (Negative); Urine Blood Negative (Negative); Urine Color Yellow; Urine Glucose Negative (Negative); Urine Ketones Negative (Negative); Urine Nitrite Negative (Negative); Urine Protein Negative (Negative); Urine Specific Gravity 1.021 (1.002-1.030); Urine Urobilinogen Negative (Negative); Urine pH 5.5 (5.0-8.0)
[2024-04-18] MEDS: Prothrombin Complex Conc. DOSE = Units Factor IX (nine) IV SLOW PU ONE (18:20)
[2024-04-18] MEDS: Iohexol 350 (CONTRAST) 500 ML MDV IV ONE (18:31)
[2024-04-19] MEDS ORDERED: Sodium Phosphate ADULT ENEMA 133 ML BTL PR PRN (00:01)
[2024-04-19] MEDS: PEG 3000 GI LAVAGE 1 GALLON PO ONE (02:05)
[2024-04-19 05:04] LABS: Hematocrit 35.8 % (35-45); Hemoglobin 12.3 g/dL (11.5-14.3); Mean Corpuscular Hemoglobin 30.2 pg (27-33); Mean Corpuscular Hgb Conc 34.4 g/dL (31-36); Mean Corpuscular Volume 87.9 fL (80-97); Mean Platelet Volume 7.3 fL (7.5-11.2); Platelet Count 279 10^3/uL (150-450); Red Blood Count 4.07 10^6/uL (3.63-4.92); Red Cell Distribution Width 14.5 % (12-17)
[2024-04-19 05:54] LABS: Calcium 8.4 mg/dL (8.6-10.3); Creatinine, Serum 0.79 mg/dL (0.51-0.95); Potassium 4.2 mmol/L (3.5-5.0)
[2024-04-19 09:06] LABS: Urine Osmo 584 mOsm/kg (150-1150)
[2024-04-19 09:07] LABS: Osmolality Serum 276 mOsm/kg (275-295)
[2024-04-19] MEDS: SMOG Enema (MgOH-NS-Gly-MinO) 330 ML ENEMA PR ONE (12:39)
[2024-04-19] MEDS: Sodium Phosphate ADULT ENEMA 133 ML BTL PR ONE (12:59)
[2024-04-19] MEDS: Latanoprost 0.005% 2.5 ml BTL BOTH EYES SCH (14:19)
[2024-04-19] MEDS: SPIRIVA Respimat (tiotropium) 2.5 mcg/inh Inhaler INH SCH (16:06)
[2024-04-19] MEDS: Enoxaparin 100 MG/ML SYR SUBCUT SCH (21:47)
[2024-04-19] MEDS: Senna TAB 8.6 mg TAB PO SCH (21:47)
[2024-04-20 08:22] LABS: Hematocrit 37.5 % (35-45); Hemoglobin 13.2 g/dL (11.5-14.3); Mean Corpuscular Hemoglobin 30.8 pg (27-33); Mean Corpuscular Hgb Conc 35.2 g/dL (31-36); Mean Corpuscular Volume 87.5 fL (80-97); Mean Platelet Volume 7.6 fL (7.5-11.2); Platelet Count 316 10^3/uL (150-450); Red Blood Count 4.29 10^6/uL (3.63-4.92); Red Cell Distribution Width 14.9 % (12-17); White Blood Count 8.8 10^3/uL (3.8-11.8)
[2024-04-20 09:10] LABS: Calcium 8.2 mg/dL (8.6-10.3); Creatinine, Serum 0.67 mg/dL (0.51-0.95); Potassium 3.6 mmol/L (3.5-5.0); eGFR CKD-EPI 88.9 (>60)
[2024-04-20] MEDS: Polyethylene Glycol 3350 17 GM PACKET PO SCH (11:17)
[2024-04-20] MEDS: Mineral Oil ENEMA 118 ML/BOTTLE BOTTLE PR ONE (12:41)
[2024-04-21 07:36] LABS: Hematocrit 33.3 % (35-45); Hemoglobin 11.9 g/dL (11.5-14.3); Mean Corpuscular Hemoglobin 31.4 pg (27-33); Mean Corpuscular Hgb Conc 35.6 g/dL (31-36); Mean Platelet Volume 7.3 fL (7.5-11.2); Platelet Count 260 10^3/uL (150-450); Red Blood Count 3.78 10^6/uL (3.63-4.92); Red Cell Distribution Width 15.3 % (12-17); White Blood Count 6.6 10^3/uL (3.8-11.8)
[2024-04-21] MEDS: Polyethylene Glycol 3350 17 GM PACKET PO SCH (20:55)
[2024-04-22 06:44] LABS: Hematocrit 31.7 % (35-45); Hemoglobin 11.2 g/dL (11.5-14.3); Mean Corpuscular Hgb Conc 35.2 g/dL (31-36); Mean Corpuscular Volume 88.1 fL (80-97); Mean Platelet Volume 7.5 fL (7.5-11.2); Platelet Count 254 10^3/uL (150-450); Red Blood Count 3.59 10^6/uL (3.63-4.92); White Blood Count 5.8 10^3/uL (3.8-11.8)
[2024-04-23 06:28] LABS: Hematocrit 32.3 % (35-45); Hemoglobin 11.3 g/dL (11.5-14.3); Mean Corpuscular Hemoglobin 30.7 pg (27-33); Mean Corpuscular Hgb Conc 34.9 g/dL (31-36); Mean Corpuscular Volume 87.9 fL (80-97); Mean Platelet Volume 7.4 fL (7.5-11.2); Platelet Count 246 10^3/uL (150-450); Red Blood Count 3.68 10^6/uL (3.63-4.92); White Blood Count 6.2 10^3/uL (3.8-11.8)
[2024-04-23 06:44] LABS: Calcium 8.3 mg/dL (8.6-10.3); Creatinine, Serum 0.76 mg/dL (0.51-0.95); Magnesium 2.1 mg/dL (1.9-2.7); Potassium 4.2 mmol/L (3.5-5.0); eGFR CKD-EPI 79.7 (>60)
[2024-04-23 09:57] VITALS: BP 137/89
== END 2024-04-23 12:05 | disposition home or self-care (01) | DRG 378 ==
LOC: EDHOLD 15:30 → ED 15:30 → SUATTDRO 20:10 → MED 04-19 09:39
PROVIDERS: ADMIT Internal Medicine; ATTEND Internal Medicine